=== PATIENT | male | born 1945 | race Caucasian/White ===

== ENCOUNTER 2023-07-12 14:24 | Emergency (ER) | payer MEDICARE, BC, OTHER ==
[2023-07-12] MEDS ORDERED: Sodium Chloride 0.9% 2.5 ML Syringe FLUSH PRN (15:40)
[2023-07-12] MEDS ORDERED: Sodium Chloride 0.9% 10 ML Syringe FLUSH PRN (15:40)
[2023-07-12 16:11] LABS: APPEARANCE,URINE CLEAR; BILIRUBIN,URINE NEGATIVE (NEGATIVE); COLOR,URINE YELLOW; GLUCOSE,URINE NEGATIVE (NEGATIVE); KETONES,URINE NEGATIVE (NEGATIVE); LEUKOCYTE ESTERASE,URINE NEGATIVE (NEGATIVE); NITRITE,URINE NEGATIVE (NEGATIVE); OCCULT BLOOD,URINE NEGATIVE (NEGATIVE); PROTEIN,URINE NEGATIVE (NEGATIVE); UROBILINOGEN,URINE 0.2 EU/dL (<2.0)
[2023-07-12 16:37] LABS: ALANINE AMINOTRANSFERASE,ALT 36 IU/L (14-63); ALBUMIN 3.6 g/dL (3.4-5.0); ALKALINE PHOSPHATASE 114 U/L (46-116); ASPARTATE AMNIOTRANSFERASE,AST 27 IU/L (15-37); BILIRUBIN TOTAL 1.5 mg/dL (0.2-1.0); BLOOD UREA NITROGEN,BUN 14 mg/dL (7.0-18.0); CARBON DIOXIDE,CO2 28.5 mmol/L (21.0-32.0); CHLORIDE,CL 106 mmol/L (98-107); GLUCOSE RANDOM 92 mg/dL (74-106); POTASSIUM,K 3.8 mmol/L (3.5-5.1); PROTEIN TOTAL,TP 7.3 g/dL (6.4-8.2); SODIUM,NA 143 mmol/L (136-148)
[2023-07-12 16:38] LABS: HEMATOCRIT 47.9 % (42.0-52.0); HEMOGLOBIN 15.8 g/dL (14.0-18.0); MEAN CORPUSCULAR HEMOGLOBIN 28.4 pg (28.0-32.0); MEAN CORPUSCULAR VOLUME 86.2 fL (83.0-99.0); PLATELET COUNT,PLT 195 K/uL (150-400); RED BLOOD CELL COUNT 5.56 M/uL (4.52-5.90); WHITE BLOOD CELL COUNT,WBC 10.63 K/uL (3.9-11.3)
[2023-07-12 16:39] LABS: ESTIMATED GFR 78 mL/min (>60)
[2023-07-12 17:09] LABS: SEG NEUTROPHILS ABSOLUTE MAN 2.66 K/uL (1.80-7.70); SEG NEUTROPHILS PERCENT MAN 25 % (41-71)
[2023-07-12 17:10] LABS: EOSINOPHILS ABSOLUTE MAN 0.21 K/uL (0.00-0.45); EOSINOPHILS PERCENT MAN 2 % (0-6); LYMPHOCYTES ABSOLUTE MAN 7.33 K/uL (1.00-4.80); LYMPHOCYTES PERCENT MAN 69 % (24-44)
[2023-07-12 17:15] LABS: MONOCYTES ABSOLUTE MAN 0.43 K/uL (0.00-0.80); MONOCYTES PERCENT MAN 4 % (0-8)
== END 2023-07-12 17:48 | disposition home or self-care (01) ==
LOC: MW.ED 14:24
DX: I10 Essential (primary) hypertension (principal); Z20.822 Contact with and (suspected) exposure to COVID-19
CPT/HCPCS: 36415; 80053; 81003; 83880; 85025; 93005; 99283; U0002; 93010; 99282

== ENCOUNTER 2023-12-04 15:48 | Observation (INO) | payer MEDICARE, BC ==
[2023-12-04 16:20] LABS: BASOPHILS ABSOLUTE AUTO 0.05 K/uL (0.00-0.20); BASOPHILS PERCENT AUTO 0.4 % (0.0-1.0); EOSINOPHILS ABSOLUTE AUTO 0.13 K/uL (0.00-0.45); HEMOGLOBIN 15.6 g/dL (14.0-18.0); IMMATURE GRAN ABSOLUTE AUTO 0.04 K/uL (0.00-0.05); IMMATURE GRAN PERCENT AUTO 0.3 % (0.0-0.4); LYMPHOCYTES ABSOLUTE AUTO 6.95 K/uL (1.00-4.80); LYMPHOCYTES PERCENT AUTO 55.2 % (24.0-44.0); MEAN CORPUSCULAR HEMOGLOBIN 28.6 pg (28.0-32.0); MEAN CORPUSCULAR HGB CONC 33.2 g/dL (32.0-36.0); MEAN CORPUSCULAR VOLUME 86.2 fL (83.0-99.0); MEAN PLATELET VOLUME 10.1 fL (9.4-12.4); MONOCYTES ABSOLUTE AUTO 0.63 K/uL (0.00-0.80); NEUTROPHILS ABSOLUTE AUTO 4.78 K/uL (1.80-7.70); NEUTROPHILS PERCENT AUTO 38.1 % (41.0-71.0); PLATELET COUNT,PLT 198 K/uL (150-400); RED BLOOD CELL COUNT 5.45 M/uL (4.52-5.90); WHITE BLOOD CELL COUNT,WBC 12.58 K/uL (3.9-11.3)
[2023-12-04] MEDS: Sodium Chloride 0.9% 10 ML Syringe FLUSH PRN (16:24)
[2023-12-04] MEDS: Sodium Chloride 0.9% 2.5 ML Syringe FLUSH PRN (16:24)
[2023-12-04] MEDS: Aspirin 81 MG Tab.Chew PO ONE (16:39)
[2023-12-04 17:07] LABS: ALBUMIN 3.4 g/dL (3.4-5.0); BILIRUBIN TOTAL 1.4 mg/dL (0.2-1.0); CALCIUM 9.2 mg/dL (8.5-10.1); CARBON DIOXIDE,CO2 25.1 mmol/L (21.0-32.0); EST CRCL DRUG DOSING (CG) 66.82 mL/min; POTASSIUM,K 3.7 mmol/L (3.5-5.1); PROTEIN TOTAL,TP 6.9 g/dL (6.4-8.2)
[2023-12-04] MEDS ORDERED: Polyethylene Glycol 3350 Powder 17 GM Packet PO PRN (19:13)
[2023-12-04] MEDS ORDERED: Acetaminophen 325 MG Tab PO PRN (19:13)
[2023-12-04] MEDS ORDERED: Ondansetron 4 MG Tab.DIS PO PRN (19:13)
[2023-12-04] MEDS ORDERED: 50% Dextrose in Water 50 ML Syringe IVPUSH PRN (19:17)
[2023-12-04] MEDS ORDERED: Glucagon,Human Recombinant 1 MG Vial IM PRN (19:17)
[2023-12-04] MEDS: Albuterol/Ipratropium 3.0-0.5 MG/3 ML Neb Soln NEB PRN (19:58)
[2023-12-04] MEDS: Enoxaparin 40 MG/0.4 ML Syringe SUBCUT SCH (20:05)
[2023-12-04] MEDS: predniSONE 20 MG Tab PO SCH (20:09)
[2023-12-04] MEDS: Pantoprazole 40 MG in Sodium Chloride 0.9% 10 ML IVPUSH SCH (20:42)
[2023-12-04] MEDS: Melatonin 3 MG Tab PO SCH (21:00)
[2023-12-04] MEDS: Escitalopram 10 MG Tab PO SCH (21:10)
[2023-12-04 21:22] LABS: APPEARANCE,URINE CLEAR; BILIRUBIN,URINE NEGATIVE (NEGATIVE); COLOR,URINE YELLOW; GLUCOSE,URINE NEGATIVE (NEGATIVE); KETONES,URINE NEGATIVE (NEGATIVE); LEUKOCYTE ESTERASE,URINE NEGATIVE (NEGATIVE); NITRITE,URINE NEGATIVE (NEGATIVE); OCCULT BLOOD,URINE NEGATIVE (NEGATIVE); PROTEIN,URINE NEGATIVE (NEGATIVE); UROBILINOGEN,URINE 0.2 EU/dL (<2.0)
[2023-12-04 23:07] LABS: CORONAVIRUS COVID-19 NAA NEGATIVE (NEGATIVE); INFLUENZA A NAA NEGATIVE (NEGATIVE); INFLUENZA B NAA NEGATIVE (NEGATIVE); RESPIRATORY SYNCYTIAL VIR NAA NEGATIVE (NEGATIVE)
[2023-12-05 05:52] LABS: HEMATOCRIT 43.7 % (42.0-52.0); HEMOGLOBIN 14.3 g/dL (14.0-18.0); MEAN CORPUSCULAR HEMOGLOBIN 28.4 pg (28.0-32.0); MEAN CORPUSCULAR HGB CONC 32.7 g/dL (32.0-36.0); MEAN CORPUSCULAR VOLUME 86.9 fL (83.0-99.0); MEAN PLATELET VOLUME 9.8 fL (9.4-12.4); PLATELET COUNT,PLT 185 K/uL (150-400); RED BLOOD CELL COUNT 5.03 M/uL (4.52-5.90); WHITE BLOOD CELL COUNT,WBC 11.44 K/uL (3.9-11.3)
[2023-12-05 06:07] LABS: ALBUMIN 3.1 g/dL (3.4-5.0); BILIRUBIN TOTAL 1.3 mg/dL (0.2-1.0); CARBON DIOXIDE,CO2 27.5 mmol/L (21.0-32.0); CREATININE 1.2 mg/dL (0.8-1.3); EST CRCL DRUG DOSING (CG) 34.89 mL/min; POTASSIUM,K 3.7 mmol/L (3.5-5.1); PROTEIN TOTAL,TP 6.3 g/dL (6.4-8.2)
[2023-12-05 06:33] LABS: EOSINOPHILS ABSOLUTE MAN 0.11 K/uL (0.00-0.45); EOSINOPHILS PERCENT MAN 1 % (0-6); LYMPHOCYTES ABSOLUTE MAN 6.86 K/uL (1.00-4.80); LYMPHOCYTES PERCENT MAN 60 % (24-44); MONOCYTES ABSOLUTE MAN 0.46 K/uL (0.00-0.80); MONOCYTES PERCENT MAN 4 % (0-8); SEG NEUTROPHILS PERCENT MAN 35 % (41-71)
[2023-12-05] MEDS: Pantoprazole 40 MG Tab.CR PO SCH (06:36)
[2023-12-05] MEDS: Insulin Aspart 100 Units/ML 3 ML Pen SUBCUT SCH (08:33)
[2023-12-05] MEDS ORDERED: Escitalopram 10 MG Tab PO SCH ×2 (09:00→21:00)
[2023-12-05] MEDS: amLODIPine 5 MG Tab PO SCH (09:30)
[2023-12-05] MEDS: Rosuvastatin 10 MG Tab PO SCH (09:30)
[2023-12-05] MEDS: Losartan 50 MG Tab PO SCH (10:24)
== END 2023-12-05 14:00 | disposition home or self-care (01) ==
LOC: MW.ED 15:48 → MW.MS 18:12
PROVIDERS: ADMIT Family Medicine; ATTEND Family Medicine
DX: J45.901 Unspecified asthma with (acute) exacerbation (principal); I10 Essential (primary) hypertension; E11.9 Type 2 diabetes mellitus without complications; I25.10 Atherosclerotic heart disease of native coronary artery without angina pectoris; E78.00 Pure hypercholesterolemia, unspecified; F32.A Depression, unspecified; Z87.891 Personal history of nicotine dependence; Z79.82 Long term (current) use of aspirin; Z79.899 Other long term (current) drug therapy
CPT/HCPCS: 0241U; 36415; 71045; 80053; 81003; 82947; 83880; 84484; 85025; 85379; 87899; 93005; 93246; 93306; 94640; A9270; J1650; J3490; 93010; 96372; 99284; 99285; G0378; J7620-GY

== ENCOUNTER 2024-02-06 10:18 | Emergency (ER) | payer MEDICARE, BC ==
[2024-02-06] MEDS: traMADol 50 MG Tab PO STA (11:29)
[2024-02-06] MEDS: Ondansetron 4 MG Tab.DIS PO STA (11:29)
== END 2024-02-06 12:46 | disposition home or self-care (01) ==
LOC: MW.ED 10:18
DX: M25.561 Pain in right knee (principal); E78.00 Pure hypercholesterolemia, unspecified; I10 Essential (primary) hypertension; E11.9 Type 2 diabetes mellitus without complications; Z88.1 Allergy status to other antibiotic agents; Z91.040 Latex allergy status; Z88.5 Allergy status to narcotic agent; Z88.8 Allergy status to other drugs, medicaments and biological substances; Z79.899 Other long term (current) drug therapy; Z75.8 Other problems related to medical facilities and other health care
CPT/HCPCS: 73562; 99283; A9270

== ENCOUNTER 2024-09-12 13:01 | Emergency (ER) | payer MEDICARE, BC | END 2024-09-12 15:23 | disposition home or self-care (01) | LOC: MW.ED 13:01 | DX: J06.9 Acute upper respiratory infection, unspecified (principal); I10 Essential (primary) hypertension; J45.909 Unspecified asthma, uncomplicated; E78.00 Pure hypercholesterolemia, unspecified; E11.9 Type 2 diabetes mellitus without complications; Z75.8 Other problems related to medical facilities and other health care; Z88.1 Allergy status to other antibiotic agents; Z88.5 Allergy status to narcotic agent; Z91.040 Latex allergy status; Z88.8 Allergy status to other drugs, medicaments and biological substances; Z79.899 Other long term (current) drug therapy | CPT/HCPCS: 71046; 71046-26; 99284 ==